=== PATIENT | female | born 1995 | race Hispanic/Latino ===

== ENCOUNTER 2024-08-07 10:27 | Emergency (ER) | payer OTHER ==
[~2024-08-07] VITALS: Ht 160 cm; Wt 76.7 kg
--- NOTE | 2024-08-07 11:11 | ERN ---
General Chief Complaint: Vaginal Bleeding Stated Complaint: POSSIBLE MISCARAGE, OB 5 WEEKS Time Seen by MD: 10:27 Time Seen by Midlevel: 10:27 Source: patient History of Present Illness Initial Comments Patient is a pleasant 28-year-old female with a past medical history of hyperlipidemia presenting to the emergency department for evaluation of light vaginal bleeding and suprapubic abdominal cramping that started earlier today. Patient reports being approximately five weeks . She has an appointment scheduled with her OBGYN next month. Her last menstrual period is reported to have been on June 27, 2024. Denies any other symptoms at this time. Patient reports being a A0 Allergies: Coded Allergies: No Known Allergies (Unverified Allergy, Unknown, 08/07/24) Past Medical History Past Medical History: High Cholesterol Past Surgical History: None Female( History) LMP: Jun 27, 2024 : 1 Para: 0 Aborts: 0 ROS Dictation CONSTITUTIONAL: Negative except for HPI HEAD/FACE: Negative except for HPI EENT: Negative except for HPI RESPIRATORY: Negative except for HPI GASTROINTESTINAL/ABDOMINAL: Negative except for HPI GENITOURINARY: Negative except for HPI MUSCULOSKELETAL: Negative except for HPI INTEGUMENTARY: Negative except for HPI NEUROLOGICAL/PSYCH: Negative except for HPI HEMATOLOGIC/LYMPHATIC: Negative except for HPI All Systems Negative, Except as noted above. 13 point review of systems assessed and all negative except for above. Physical Exam Physical Exam Dictation Vital Signs reviewed General Appearance: Alert, oriented x 3, no acute distress, well developed, nourished. Head and Face: non-traumatic. Eyes: PERRL, pink conjunctivas, eyelid no trauma, anterior chamber with arcus senilis. Ears: Pinnas intact and no signs of trauma or erythema ear canals clear and no discharge TM no erythema Nose: No discharge, no bleeding. Oropharynx: Mouth normal, tongue pink, pharynx clear,no erythema, tonsils no exudates, no abscesses noted, mucous membrane moist Neck: Supple, non-tender, no thyromegaly, no masses, no JVD, no bruits Breast:Deferred Chest:No tenderness, no crepitus, no paradoxical movement, no retractions Lungs:Clear, well-ventilated, symmetric, no rales, no wheezing, no rhonchi, no stridor, good breath sounds bilaterally Heart: Regular rate, regular rhythm, no murmur, no gallops Vascular: no peripheral edema, Abdomen: Soft, positive bowel sounds, nondistended, no guarding, nontender, no rebound, no masses no hepatomegaly, no splenomegaly, no Griffin's sign, no hernias. Rectal: Deferred Genital: Deferred Neurological: Normal speech, motor function intact, sensory function intact Musculoskeletal: Neck nontender, full range of motion, back nontender, full range of motion, Extremities: nontender, full range of motion Skin: Color pink, dry, no turgor, no rash, no lacerations, no abrasions, no contusions. Lymphatic: Deferred Results Laboratory and Microbiology Lab and Micro Result Laboratory Tests Test 08/07/24 10:56 08/07/24 11:06 Urine Color YELLOW (YELLOW) Urine Appearance CLEAR (CLEAR) Urine pH 6.0 (5.0-8.0) Urine Specific [place] 1.026 (1.001-1.031) Urine Protein 10 mg/dL (NEGATIVE) H Urine Glucose (UA) NEGATIVE mg/dL (NEGATIVE) Urine Ketones 10 mg/dL (NEGATIVE) H Urine Occult Blood LARGE (NEGATIVE) H Urine Nitrate NEGATIVE (NEGATIVE) Urine Bilirubin NEGATIVE mg/dL (NEGATIVE) Urine Urobilinogen 0.2 mg/dL (0.2-1.0) Urine Leukocyte Esterase 25 Isela/uL (NEGATIVE) H Urine RBC 11-25 /HPF (0-1) H Urine WBC 2-5 /HPF (0-1) H Urine Squamous Epithelial Cells MOD /HPF (0-2) Urine Bacteria None /HPF (None Seen) Urine Hyaline Casts 2-5 /LPF (0-1 /LPF) H White Blood Count 9.4 K/uL (4.8-10.8) Red Blood Count 4.22 MIL/uL (4.00-5.50) Hemoglobin 13.1 g/dL (12.0-16.0) Hematocrit 39.3 % (36-48) Mean Corpuscular Volume 93.1 fL (79-99) Mean Corpuscular Hemoglobin 31.0 pg (27.0-33.0) Mean Corpuscular Hemoglobin Concent 33.3 g/dL (32.0-36.0) Red Cell Distribution Width 12.0 % (11.0-15.5) Platelet Count 384 K/uL (130-400) Mean Platelet Volume 10.0 fL (7.5-10.5) Immature Granulocyte % (Auto) 0.5 % (0-1) Neutrophils (%) (Auto) 64.1 % (40.0-77.0) Lymphocytes (%) (Auto) 26.4 % (21.0-51.0) Monocytes (%) (Auto) 8.0 % (3.0-13.0) Eosinophils (%) (Auto) 0.6 % (0.0-8.0) Basophils (%) (Auto) 0.4 % (0.0-5.0) Neutrophils # (Auto) 6.0 K/uL (1.8-7.7) Lymphocytes # (Auto) 2.5 K/uL (1.0-4.8) Monocytes # (Auto) 0.8 K/uL (0.1-1.0) Eosinophils # (Auto) 0.06 K/uL (0.00-0.70) Basophils # (Auto) 0.04 K/uL (0.00-0.20) Absolute Immature Granulocyte (auto 0.05 K/uL (0-1) Nucleated Red Blood Cells 0.0 % (0.0-0.19) Sodium Level 137 mmol/L (136-145) Potassium Level 3.7 mmol/L (3.5-5.1) Chloride Level 99 mmol/L (101-111) L Carbon Dioxide Level 29 mmol/L (21-32) Blood Urea Nitrogen 10 mg/dL (7-18) Creatinine 0.7 mg/dL (0.5-1.0) Glomerular Filtration Rate Calc 120 mL/min (>90) Random Glucose 85 mg/dL (70-105) Total Calcium 8.9 mg/dL (8.5-10.1) Human Chorionic Gonadotropin, Quant 324 mIU/mL (0-5) H Labs Reviewed?: Yes MDM MDM: Patient is a pleasant 28-year-old female with a past medical history of hyperlipidemia presenting to the emergency department for evaluation of light vaginal bleeding and suprapubic abdominal cramping that started earlier today. Patient reports being approximately five weeks . She has an appointment scheduled with her OBGYN next month. Her last menstrual period is reported to have been on June 27, 2024. Denies any other symptoms at this time. Patient reports being a A0. On physical examination the patient is in no acute distress. Initial vital signs are stable. CBC shows a normal white blood cell count. Hemoglobin is stable at 13.1. Platelets are normal at 384. Chemistries are unremarkable. HCG quant is slightly positive at 324. Pelvic ultrasound does not reveal any evidence of an intrauterine gestation at this time. However, this could be related to an early . At this time however we can not completely rule out a spontaneous miscarriage versus an ectopic . The patient will need to have a repeat ultrasound and repeat hCG quant testing in about a week. She already has an appointment scheduled with her OBGYN. She was given a copy of her ultrasound report along with her hCG quant. I recommend bedrest for the next 24-48 hours. If she was to develop any new or worsening symptoms she was to report to the ER for further evaluation. The patient is agreeable with this plan and all questions have been answered. Differential diagnosis: Spontaneous miscarriage, implantation bleeding, subchorionic hemorrhage, ectopic There are no social concerns with this patient. Prescription drug management Prescriptions will include: None Medical management and examination interpretation discussions were had by tn wi th other qualified healthcare professionals as indicated for the patient's care. ED Course Orders Procedure Category Date Status Time Cbc With Differential LAB 08/07/24 Complete 10:51 Basic Metabolic Panel LAB 08/07/24 Complete 10:51 Urinalysis Profile LAB 08/07/24 Complete 10:51 Hcg,Quantitative LAB 08/07/24 Complete 10:51 Us Ob <14 Weeks US 08/07/24 Resulted 10:51 *Nursing CPOE 08/07/24 Transmitted Communication: 10:51 Vital Signs Date Time Temp Pulse Resp B/P (MAP) Pulse Ox O2 Delivery O2 Flow Rate FiO2 08/07/24 10:43 99.0 109 20 136/87 98 0 [place] [id number] [address] IMAGING REPORT Signed PATIENT: MICH WEBSTER MR#: [id number] : 1995 SEX: F AGE: 28 LOCATION: [facility] ORDER 1053 STATUS: REG ER REPORT#: [id number] SERVICE 1051 REASON: vaginal bleeding/cramping approx 5-6 weeks ORDERING PHYSICIAN: DEAN QUICK PROCEDURE: OB <14 - US OB <14 WEEKS US OB <14 WEEKS REASON: vaginal bleeding/cramping approx 5-6 weeks COMPARISON: None TECHNIQUE: Transvaginal pelvic sonogram was performed. FINDINGS: Uterus is 8.3 x 5.1 x 5.7 cm. Endometrium is 12 mm. There is no evidence of intrauterine gestational sac. Both ovaries appear normal. There are no adnexal masses. There are no cysts and there is no free fluid. These findings are nonspecific. An early less than 5 week gestation can result in this appearance. Spontaneous miscarriage can cause these findings as can an unruptured and nonvisualized ectopic . IMPRESSION: 1. Normal pelvic sonogram, no evidence of an intrauterine gestation at this time. DICTATED BY: ARIELLE BLANDON MD DATE: 08/07/24 1139 ELECTRONICALLY SIGNED BY: ARIELLE BLANDON MD DATE: 08/07/24 1145 DX & DISP Disposition: Discharge Departure Impression: Primary Impression: Positive test Condition: Stable Additional Instructions: Your blood work today is unremarkable. Your hCG quant level is 324. Your pelvic ultrasound shows no evidence of an intrauterine gestation at this time. This may be related to an early gestation of less than five weeks. However, at this time we can not completely rule out a spontaneous miscarriage versus an ectopic . You will need a repeat ultrasound and hCG quant in one week. If you develop any new or worsening symptoms please return to the emergency department for further evaluation. I recommend bedrest for the next 24-48 hours. Referrals: ARIANE JORDAN MD (PCP) Time of Disposition: 12:09 I have reviewed the case, and I agree with, Diagnosis and Plan I performed the substantive portion of the visit. I have reviewed and personally made and approve the management plan that is documented in the note by myself or the MICAELA. I acknowledge for responsibility for the patient's management plan. DEAN QUICK Aug 07, 2024 11:11
[2024-08-07 11:25] LABS: BASOPHILS # (AUTO) 0.04 K/uL (0.00-0.20); BASOPHILS % (AUTO) 0.4 % (0.0-5.0); EOSINOPHILS # (AUTO) 0.06 K/uL (0.00-0.70); EOSINOPHILS % (AUTO) 0.6 % (0.0-8.0); HEMATOCRIT 39.3 % (36-48); IMMATURE GRANULOCYTE ABSOLUTE 0.05 K/uL (0-1); LYMPHOCYTES # (AUTO) 2.5 K/uL (1.0-4.8); LYMPHOCYTES % (AUTO) 26.4 % (21.0-51.0); MEAN CORPUSCULAR HGB CONC 33.3 g/dL (32.0-36.0); MEAN CORPUSCULAR VOLUME 93.1 fL (79-99); MONOCYTES # (AUTO) 0.8 K/uL (0.1-1.0); NEUTROPHILS % (AUTO) 64.1 % (40.0-77.0); PLATELET COUNT (AUTO) 384 K/uL (130-400); RED BLOOD CELL COUNT(AUTO) 4.22 MIL/uL (4.00-5.50); WHITE BLOOD COUNT (AUTO) 9.4 K/uL (4.8-10.8)
[2024-08-07 11:28] LABS: APPEARANCE,URINE CLEAR (CLEAR); BILIRUBIN,URINE NEGATIVE (NEGATIVE); COLOR,URINE YELLOW (YELLOW); GLUCOSE, URINE (UA) NEGATIVE (NEGATIVE); KETONES,URINE 10 mg/dL (NEGATIVE); LEUKOCYTE ESTERASE ,URINE 25 Leu/uL (NEGATIVE); NITRATE,URINE NEGATIVE (NEGATIVE); OCCULT BLOOD,URINE LARGE (NEGATIVE); PROTEIN,URINE 10 mg/dL (NEGATIVE); UROBILINOGEN,URINE 0.2 mg/dL (0.2-1.0)
[2024-08-07 11:29] LABS: ADD UA MICROSCOPIC YES
[2024-08-07 11:30] LABS: CREATININE 0.7 mg/dL (0.5-1.0); POTASSIUM 3.7 mmol/L (3.5-5.1)
[2024-08-07 11:32] LABS: MUCUS,URINE RARE LPF (None Seen); SQUAMOUS EPITHELIAL CELL,UR MOD /HPF (0-2)
--- NOTE | 2024-08-07 11:45 | HMCIMG ---
US OB <14 WEEKS REASON: vaginal bleeding/cramping approx 5-6 weeks COMPARISON: None TECHNIQUE: Transvaginal pelvic sonogram was performed. FINDINGS: Uterus is 8.3 x 5.1 x 5.7 cm. Endometrium is 12 mm. There is no evidence of intrauterine gestational sac. Both ovaries appear normal. There are no adnexal masses. There are no cysts and there is no free fluid. These findings are nonspecific. An early less than 5 week gestation can result in this appearance. Spontaneous miscarriage can cause these findings as can an unruptured and nonvisualized ectopic . IMPRESSION: 1. Normal pelvic sonogram, no evidence of an intrauterine gestation at this time.
[2024-08-07 12:11] VITALS: BP 131/86; PULSE 100; RESP 20; TEMP 99; O2SAT 99
== END 2024-08-07 12:41 | disposition home or self-care (01) ==
LOC: EDH 10:27
DX: O20.9 Hemorrhage in early pregnancy, unspecified (principal); O99.281 Endocrine, nutritional and metabolic diseases complicating pregnancy, first trimester; E78.00 Pure hypercholesterolemia, unspecified; O26.891 Other specified pregnancy related conditions, first trimester; R10.2 Pelvic and perineal pain; Z3A.01 Less than 8 weeks gestation of pregnancy
CPT/HCPCS: 36415; 76801; 80048; 81001; 84702; 85025; 99284

== ENCOUNTER 2024-08-09 15:28 | Emergency (ER) | payer OTHER ==
[~2024-08-09] VITALS: Ht 160 cm; Wt 74.8 kg
--- NOTE | 2024-08-09 15:42 | ERN ---
ED Note History of Present Illness Stated Complaint: VAGINAL BLEEDING Chief Complaint: Vaginal Bleeding Time Seen by MD: 15:38 Time Seen by Midlevel: 15:43 Dictation: Ms Naranjo is a 28 year old female who presented to the Emergency Department this afternoon for evaluation of vaginal bleeding. She states she is one para 0; early 1st trimester . She states that on Monday 08/07 she developed some bleeding with cramping and was seen CR. She had an ultrasound which showed a no gestational sac and had quantitative hCG of 324. She states she continues to have lower abdominal cramping, low back pain and heavy vaginal bleeding with clots. She denies having fever, chills, shortness of breath, cough, chest pain, palpitations, nausea, vomiting, Allergies: Coded Allergies: No Known Allergies (Unverified Allergy, Unknown, 08/07/24) Emergency Care COMMUNICATIONS CONTROLLER: None Home Meds Active Scripts Ibuprofen (Ibuprofen) 600 Mg Tablet, 600 MG PO Q6H PRN for PAIN, #15 TAB 0 Refills Prov:EMMA SANABRIA NP 08/09/24 Cephalexin (Cephalexin) 500 Mg Tablet, 500 MG PO BID for 7 Days, #14 TAB 0 Refills Prov:EMMA SANABRIA NP 08/09/24 Past Medical History Past Medical History: High Cholesterol Surgical History: None PSYCH History: no pertinent psych hx Social History: Negative, Lives with family LMP: Jun 27, 2024 : 1 Para: 0 Aborts: 0 RN Note Reviewed/Agreed w/PFSH: Yes Review of System Dictation REVIEW OF SYSTEMS: CONSTITUTIONAL: Patient denies fevers, chills, sweats and weight changes. EYES: Patient denies any visual symptoms. EARS, NOSE, AND THROAT: No difficulties with hearing. No symptoms of rhinitis or sore throat. CARDIOVASCULAR: Patient denies chest pains, palpitations, orthopnea and paroxysmal nocturnal dyspnea. RESPIRATORY: No dyspnea on exertion, no wheezing or cough. GI: No nausea, vomiting, diarrhea, constipation,hematochezia or melena. Reports lower abdominal pain/cramping. : No urinary hesitancy or dribbling. No nocturia or urinary frequency. No abnormal urethral discharge. Reports low back pain. Reports heavy vaginal bleeding with clots. States she believes she is six weeks . MUSCULOSKELETAL: No myalgias or arthralgias. NEUROLOGIC: No chronic headaches, no seizures. Patient denies numbness, tingling or weakness. PSYCHIATRIC: Patient denies problems with mood disturbance. No problems with anxiety. ENDOCRINE: No excessive urination or excessive thirst. DERMATOLOGIC: Patient denies any rashes or skin changes. Initial Vital Sign VS Vital Signs Date Time Temp Pulse Resp B/P (MAP) Pulse Ox O2 Delivery O2 Flow Rate FiO2 08/09/24 15:32 97.3 104 20 140/93 98 Room Air 0 08/09/24 15:54 21 Physical Exam Dictation Vital signs: Reviewed. afebrile. Constitutional: No acute distress. Non-toxic appearing. Head/Face: Normocephalic, atraumatic. Eyes: Periorbital areas with no swelling, redness, or edema. Lids and lashes are normal. Conjunctival injection is absent. Sclera anicteric. Pupils equal, round, reactive to light. ENT: Pinnas intact and no signs of trauma or erythema. Ear canals clear and no discharge. TMs no erythema. No nasal discharge or bleeding noted. Oropharynx with no exudate, redness, swelling, masses, exudates, or evidence of obstruction. Uvula midline. Mucous membranes moist. Neck: Trachea midline, no masses palpated, and no cervical lymphadenopathy. No swelling. Supple, full range of motion. Chest/Axilla: No tenderness, no crepitus, no paradoxical movement, no retractions. Cardiovascular: Regular rate, regular rhythm, no murmur, no gallops. Symmetric pulses. No peripheral edema. Normotensive. Respiratory: Respirations even and unlabored. Lung sounds clear; no wheezes, rales or rhonchi. Room air spo2 99% Gastrointestinal: Inspection is normal. No distention is appreciated. Bowel sounds are normal. No mass or organomegaly . There is no tenderness. No rebound. No rigidity. No voluntary or involuntary guarding. No Griffin's sign. Neurological: Normal speech, gross motor function intact, gross sensory function intact. No focal weakness/Paresthesia. Musculoskeletal/Extremities: All extremities have full range of motion, no pain or tenderness on palpation. Symmetric pulses. Integumentary: Intact. Skin is normal color, warm and dry. Cap refill less than 3 seconds. Results (Laboratory/Radiology) Laboratory/Radiology Laboratory Tests Test 08/09/24 16:15 White Blood Count 11.1 K/uL (4.8-10.8) H Red Blood Count 4.60 MIL/uL (4.00-5.50) Hemoglobin 14.3 g/dL (12.0-16.0) Hematocrit 42.4 % (36-48) Mean Corpuscular Volume 92.2 fL (79-99) Mean Corpuscular Hemoglobin 31.1 pg (27.0-33.0) Mean Corpuscular Hemoglobin Concent 33.7 g/dL (32.0-36.0) Red Cell Distribution Width 11.9 % (11.0-15.5) Platelet Count 417 K/uL (130-400) H Mean Platelet Volume 9.8 fL (7.5-10.5) Immature Granulocyte % (Auto) 0.3 % (0-1) Neutrophils (%) (Auto) 70.2 % (40.0-77.0) Lymphocytes (%) (Auto) 20.6 % (21.0-51.0) L Monocytes (%) (Auto) 7.9 % (3.0-13.0) Eosinophils (%) (Auto) 0.7 % (0.0-8.0) Basophils (%) (Auto) 0.3 % (0.0-5.0) Neutrophils # (Auto) 7.8 K/uL (1.8-7.7) H Lymphocytes # (Auto) 2.3 K/uL (1.0-4.8) Monocytes # (Auto) 0.9 K/uL (0.1-1.0) Eosinophils # (Auto) 0.08 K/uL (0.00-0.70) Basophils # (Auto) 0.03 K/uL (0.00-0.20) Absolute Immature Granulocyte (auto 0.03 K/uL (0-1) Nucleated Red Blood Cells 0.0 % (0.0-0.19) Sodium Level 139 mmol/L (136-145) Potassium Level 3.8 mmol/L (3.5-5.1) Chloride Level 101 mmol/L (101-111) Carbon Dioxide Level 31 mmol/L (21-32) Blood Urea Nitrogen 12 mg/dL (7-18) Creatinine 0.7 mg/dL (0.5-1.0) Glomerular Filtration Rate Calc 120 mL/min (>90) Random Glucose 116 mg/dL (70-105) H Total Calcium 9.3 mg/dL (8.5-10.1) Total Bilirubin 0.2 mg/dL (0.2-1.0) Aspartate Amino Transf (AST/SGOT) 28 U/L (10-37) Alanine Aminotransferase (ALT/SGPT) 49 U/L (12-78) Alkaline Phosphatase 56 U/L (50-136) Total Protein 8.5 g/dL (6.0-8.3) H Albumin 4.2 g/dL (3.5-5.0) Human Chorionic Gonadotropin, Quant 94 mIU/mL (0-5) H Labs Reviewed?: Yes ED Course ED Course Orders Procedure Category Date Status Time Hcg,Quantitative LAB 08/09/24 Complete 15:39 Cbc With Differential LAB 08/09/24 Complete 15:39 Comprehensive LAB 08/09/24 Complete Metabolic Panel 15:39 Vital Signs Date Time Temp Pulse Resp B/P (MAP) Pulse Ox O2 Delivery O2 Flow Rate FiO2 08/09/24 17:18 98.1 67 20 130/80 100 Room Air* 0 21 08/09/24 15:54 98.1 64 20 132/88 100 Room Air* 0 21 08/09/24 15:32 97.3 104 20 140/93 98 Room Air 0 Uneventful ED course. Vital signs remained stable; normotensive. Initially heart rate was elevated at 104; now 64. She remains afebrile. Laboratory findings as noted below. WBCs 11.1 and platelet count 417. No electrolyte derangement. HCG had dropped from 324-94; suggestive of miscarriage. Findings were discussed with patient and all questions were answered. She denies need for analgesics. She will follow up with her OB. Review of UA on 08/07 revealed a positive leukocyte esterase and UWBC; will start oral antibiotic. Medical Decision Making MDM MDM: Differential diagnosis: threatened AB, misscarriage, UA, anemia secondary to blood loss Rationale: Tests considered and ordered secondary to shared decision making include: LAB Previous outside records reviewed: Old ER visits. Risk of complication and/or morbidity or mortality of patient management: None Medications-Per medication reconciliation Need for hospitalization: Patient does not meet criteria for hospitalization. Need for emergency major/minor surgery: No There are no social concerns with this patient. Prescription drug management: Cephalexin Prescriptions will include symptomatic care Patient's prior external medical records from other ER visits were reviewed by me as indicated. Prior testing and results from previous visits were reviewed. Prior tests were taken into account with medical decision making and resource utilization, independent historian/historians were used to obtain complete medical history. I independently interpreted the test that were performed, results were reviewed by me and considered findings on radiology if ordered. Medical management and examination interpretation discussions were had by me with other qualified healthcare professionals as indicated for the patient's care. DX & DISP Disposition: Discharge Departure Impression: Primary Impression: Miscarriage Additional Impression: UTI (urinary tract infection) Condition: Stable Scripts Ibuprofen (Ibuprofen) 600 Mg Tablet 600 MG PO Q6H PRN for PAIN, #15 TAB 0 Refills Prov: EMMA SANABRIA NP 08/09/24 Cephalexin (Cephalexin) 500 Mg Tablet 500 MG PO BID for 7 Days, #14 TAB 0 Refills Prov: EMMA SANABRIA NP 08/09/24 Additional Instructions: Rest. Drink plenty of fluids. Start antibiotic cephalexin 500 b.i.d. x7 days for UTI. May take ibuprofen or [id number] Tylenol as needed for discomfort. Follow up with your OB as soon as possible. Return to the emergency department for any worsening of symptoms or concerns. Referrals: DARYL LIU MD (PCP) TARA JEFFERSON JR, MD Time of Disposition: 17:20 ATTESTATION BY PHYSICIAN I PERFORMED THE SUBSTANTIVE PORTION OF THE VISIT. I HAVE REVIEWED AND PERSONALLY MADE AND APPROVED THE MANAGEMENT PLAN THAT IS DOCUMENTED IN THE NOTE BY MYSELF FOR THE A PP. I ACKNOWLEDGED FOR RESPONSIBILITY FOR THE PATIENT'S MANAGEMENT PLAN. EMMA SANABRIA NP Aug 09, 2024 15:42 KATHYA FINN MD Aug 10, 2024 07:48
[2024-08-09 16:22] LABS: BASOPHILS # (AUTO) 0.03 K/uL (0.00-0.20); BASOPHILS % (AUTO) 0.3 % (0.0-5.0); EOSINOPHILS # (AUTO) 0.08 K/uL (0.00-0.70); EOSINOPHILS % (AUTO) 0.7 % (0.0-8.0); HEMATOCRIT 42.4 % (36-48); IMMATURE GRANULOCYTE ABSOLUTE 0.03 K/uL (0-1); LYMPHOCYTES # (AUTO) 2.3 K/uL (1.0-4.8); LYMPHOCYTES % (AUTO) 20.6 % (21.0-51.0); MEAN CORPUSCULAR HEMOGLOBIN 31.1 pg (27.0-33.0); MEAN CORPUSCULAR HGB CONC 33.7 g/dL (32.0-36.0); MEAN CORPUSCULAR VOLUME 92.2 fL (79-99); MONOCYTES # (AUTO) 0.9 K/uL (0.1-1.0); MONOCYTES % (AUTO) 7.9 % (3.0-13.0); NEUTROPHILS # (AUTO) 7.8 K/uL (1.8-7.7); NEUTROPHILS % (AUTO) 70.2 % (40.0-77.0); PLATELET COUNT (AUTO) 417 K/uL (130-400); RED CELL DISTRIBUTION WIDTH 11.9 % (11.0-15.5); WHITE BLOOD COUNT (AUTO) 11.1 K/uL (4.8-10.8)
[2024-08-09 16:32] LABS: CREATININE 0.7 mg/dL (0.5-1.0); POTASSIUM 3.8 mmol/L (3.5-5.1)
[2024-08-09 16:53] LABS: ALBUMIN 4.2 g/dL (3.5-5.0); BILIRUBIN,TOTAL 0.2 mg/dL (0.2-1.0); TOTAL PROTEIN, SERUM 8.5 g/dL (6.0-8.3)
[2024-08-09 17:18] VITALS: BP 130/80; PULSE 67; RESP 20; TEMP 98.1; O2SAT 100
[2024-08-09] MEDS ORDERED: IBUP-2070 PO (17:18)
[2024-08-09] MEDS ORDERED: CEPH500T PO (17:18)
== END 2024-08-09 17:25 | disposition home or self-care (01) ==
LOC: EDH 15:28
DX: O03.88 Urinary tract infection following complete or unspecified spontaneous abortion (principal); N39.0 Urinary tract infection, site not specified; R10.2 Pelvic and perineal pain; E78.00 Pure hypercholesterolemia, unspecified; Z3A.01 Less than 8 weeks gestation of pregnancy
CPT/HCPCS: 36415; 80053; 84702; 85025; 99283